=== PATIENT | female | born 1995 | race Caucasian/White ===

== ENCOUNTER 2016-07-28 13:27 | Emergency (ER) ==
[2016-07-28] MEDS ORDERED: ASPIRIN PO ONE (15:09)
--- NOTE | 2016-07-28 15:55 | Diag Imaging Result Document ---
PROCEDURE NAME: CHEST-2 VIEWS - 07/28/2016 CHEST, 2 VIEWS: COMPARISON: None. FINDINGS: The lungs are normally expanded and clear. Heart size and mediastinal contours are normal. No pneumothorax or pleural effusion. IMPRESSION: Negative exam.
--- NOTE | 2016-07-28 15:56 | ED EKG INTERP ---
EKG Interpretation - EKG Time of EKG reading by physician:: 15:37 EKG Read and Signed by:: Ronnie Mckoy EKG Interpretation (*Must complete 3 of following elements*): Normal Rate: 100 Rhythm: normal sinus rhythm Comments: Normal ECG
--- NOTE | 2016-07-28 15:57 | EKG Report ---
Test Performed on : 07/28/2016 3:37:28 PM Test Reason : CHEST PAIN Blood Pressure : / mmHG Vent. Rate : 100 BPM Atrial Rate : 100 BPM P-R Int : 128 ms QRS Dur : 074 ms QT Int : 366 ms P-R-T Axes : 054 055 026 degrees QTc Int : 472 ms Normal sinus rhythm. Normal ECG No previous ECGs available Unconfirmed Result
--- NOTE | 2016-07-28 18:08 | PROVIDER DOCUMENTATION ---
HPI-Chest Pain - General Source: patient - History of Present Illness-CP Location: reports: central Chest Pain Radiation: reports: no radiation Quality of Pain: reports: aching, pressure Severity in ED: mild Onset/Duration: other (3 weeks ago) Timing: still present, intermittent Context/Activities at Onset: reports: none Modifying Factors: improves with: breathing (deep breaths worse) Associated Symptoms: reports: denies symptoms Nitro Today/Relief: no nitro taken today Aspirin Treatment Today: 325 mg x 1, provided by ED Prior Chest Pain/Cardiac Workup: reports: no prior chest pain, no prior cardiac workup Similar Symptoms Previously?: Yes Recently Seen Here or By Another Healthcare Provider: No <Tiffanie Avila - Last Filed: 07/29/16 20:06> <Purvi Martinez - Last Filed: 07/31/16 17:23> - General Chief Complaint: Chest Pain Stated Complaint: CHEST PAIN Time Seen by Provider: 07/28/16 17:50 Allergies/Adverse Reactions: Patient Allergies Allergy/AdvReac Type Severity Reaction Status Date / Time Penicillins Allergy ANAPHYLAXIS Verified 07/28/16 14:04 Home Medications: Home Medication List Medication Instructions Recorded Confirmed Last Taken Type No Home Medications 07/28/16 07/28/16 Unknown History - History of Present Illness-CP Nature of Presenting Problem: 20 year old female presents to ER with c/o chest pain that started 1 week after having her baby but it has been worsening and today it is worse. She states that once the pain starts she begins to have palpitations. Deep breaths worsens the pain. (Tiffanie Avila) Review of Systems - Adult - REVIEW OF SYSTEMS - ADULT Constitutional: reports: no symptoms reported Eyes: reports: no symptoms reported Ears, Nose, Mouth & Throat: reports: no symptoms reported Cardiovascular: reports: chest pain, palpitations Respiratory: reports: see HPI, shortness of breath Gastrointestinal: reports: no symptoms reported Genitourinary: reports: no symptoms reported Musculoskeletal: reports: no symptoms reported Integumentary: reports: no symptoms reported Neurological: reports: no symptoms reported Psychiatric: reports: no symptoms reported Endocrine: reports: no symptoms reported Hematologic/Lymphatic: reports: no symptoms reported Allergic/Immunologic: reports: no symptoms reported All Other Systems: Reviewed and Negative <Tiffanie Avila - Last Filed: 07/29/16 20:06> Past History - Adult - PAST MEDICAL HISTORY-ADULT Review of Records: reports: Old Records Reviewed, Nursing Assessment Review, Medications Reviewed, Social history reviewed & non-contributory. Major Childhood Illnesses: reports: denies history Cardiovascular: reports: denies history Respiratory: reports: denies history Gastrointestinal: reports: denies history Obstetrical/Gynecological: reports: denies history Genitourinary: reports: denies history Musculoskeletal: reports: denies history Neurological: reports: denies history Endocrine/Immune: reports: denies history Other Conditions: reports: denies history - PRIOR SURGERIES/PROCEDURES Surgical/Procedure History: reports: tonsillectomy - IMMUNIZATION STATUS Childhood Immunizations: See Nurse Assessment Flu Vaccine: See Nurse Assessment - FAMILY HISTORY Family History: reviewed, not pertinent - SOCIAL HISTORY Smoking: denies, non-smoker Substance Use: none/never, denies Alcohol Use Frequency: never Living Situation: family <AustinAugust. - Last Filed: 07/29/16 20:06> Physical Exam-General - PHYSICAL EXAM-ADULT Initial Vital Signs Reviewed: Yes - CONSTITUTIONAL General Appearance: appears well, alert, no apparent distress - EYES Eyes: PERRL/EOMI, pink conjunctivae - HEAD, EARS, NOSE, MOUTH & THROAT HENMT: normocephalic/atraumatic, moist mucous membranes - RESPIRATORY Respiratory: lungs clear, normal breath sounds, no respiratory distress - CARDIOVASCULAR Cardiovascular: normal peripheral pulses, tachycardia (105) - GASTROINTESTINAL (ABDOMEN) Abdominal Exam: tenderness (epigastric area) - MUSCULOSKELETAL Back Exam: normal inspection Extremity: normal inspection, no pedal edema Peripheral Pulses: radial (R): 2+, radial (L): 2+, dorsalis-pedis (R): 2+, dorsalis-pedis (L): 2+ - SKIN Integumentary: normal color, normal turgor, warm/dry - NEUROLOGIC Neurologic: grossly normal - PSYCHIATRIC Psych/Mental Status: normal mood/affect, normal thought content, normal thought process, oriented x 3 <AustinAugust. - Last Filed: 07/29/16 20:06> Progress - XRAY 1 XRAY Study: Chest Impression: Normal (nad) XRAY Interpretation: Interpreted by Dr. Deleon - CHANGE OF SHIFT REPORT (ED Provider) Report Given and Care Transferred to:: Robyn Martinez PA-C Time of Transfer: 19:48 Items Pending: CT/MRI Results Tentative Impression of Patient: stable <AvilaTiffanie Keiko - Last Filed: 07/29/16 20:06> - CT/MRI 1 CT Study: Angiogram Impression: See EMR Report (No PE or other definite acute path. -per Dr. Chappell) <Purvi Martinez - Last Filed: 07/31/16 17:23> - PLAN OF CARE/RESULTS Progress/Plan/Lab Results: Laboratory Tests 07/28/16 07/28/16 07/28/16 18:23 18:23 18:23 WBC 10.21 RBC 4.25 Hgb 11.6 L Hct 35.3 L MCV 83.1 MCH 27.3 MCHC 32.9 L RDW Std Deviation 13.3 Plt Count 294 MPV 8.6 Immature Gran % (Auto) 0.3 Neut % (Auto) 74.1 Lymph % (Auto) 18.2 L [place] % (Auto) 5.1 Eos % (Auto) 2.0 Baso % (Auto) 0.3 Immature Gran # (Auto) 0.03 Neut # (Auto) 7.57 H Lymph # (Auto) 1.86 [place] # (Auto) 0.52 Eos # (Auto) 0.20 Baso # (Auto) 0.03 PT INR APTT (Factor Assay) D-Dimer Sodium 137 Potassium 4.5 Chloride 101 Carbon Dioxide 22 L Anion Gap 14 BUN 7 L Creatinine 0.4 L Estimated GFR/1.73 m2 > 60 BUN/Creatinine Ratio 18 Glucose 79 Calculated Osmolality 271 Calcium 9.3 Magnesium 2.0 Total Bilirubin 0.30 AST 94 H ALT 61 H Alkaline Phosphatase 145 H Creatine Kinase 56 Troponin T < 0.010 Wub-N-Gyalrmgrosc Pept Total Protein 7.3 Albumin 4.4 Globulin 3.0 Albumin/Globulin Ratio 2.0 07/28/16 07/28/16 18:23 18:23 WBC RBC Hgb Hct MCV MCH MCHC RDW Std Deviation Plt Count MPV Immature Gran % (Auto) Neut % (Auto) Lymph % (Auto) [place] % (Auto) Eos % (Auto) Baso % (Auto) Immature Gran # (Auto) Neut # (Auto) Lymph # (Auto) [place] # (Auto) Eos # (Auto) Baso # (Auto) PT 12.8 INR 0.93 APTT (Factor Assay) 28.3 D-Dimer 0.95 H Sodium Potassium Chloride Carbon Dioxide Anion Gap BUN Creatinine Estimated GFR/1.73 m2 BUN/Creatinine Ratio Glucose Calculated Osmolality Calcium Magnesium Total Bilirubin AST ALT Alkaline Phosphatase Creatine Kinase Troponin T Zfb-A-Vifxgdazejq Pept 63 Total Protein Albumin Globulin Albumin/Globulin Ratio Orders Category Date Time Status Saline Loc NOW Care 07/28/16 18:00 Active ANGIOGRAM/PULMONARY ARTERIES [CT] Stat Exams 07/28/16 19:47 Ordered CHEST-2 VIEWS [RAD] Stat Exams 07/28/16 15:10 Completed CBC WITH ELECTRONIC DIFF [HEME] Stat Lab 07/28/16 18:23 Completed CK PROFILE [SP CHEM] Stat Lab 07/28/16 18:23 Completed COMPREHENSIVE METABOLIC PANEL [CHEM] Stat Lab 07/28/16 18:23 Completed D-DIMER PL [COAG] Stat Lab 07/28/16 18:23 Completed D-DIMER [CHEM] Stat Lab 07/28/16 18:00 Ordered MAGNESIUM [CHEM] Stat Lab 07/28/16 18:23 Completed PRO B-NATRIURETIC PEPTIDE Stat Lab 07/28/16 18:[address]IME WITH INR PL [COAG] Stat Lab 07/28/16 18:[address] [COAG] Stat Lab 07/28/16 18:23 Completed TROPONIN T Stat Lab 07/28/16 18:23 Completed 0.9% Sodium Chloride Inj [Ns] 1,000 ml Med 07/28/16 19:33 Active IV 999 mls/hr Aspirin Med 07/28/16 15:09 Discontinued 325 mg PO NOW ONE EKG [EKG] Stat Ther 07/28/16 15:10 Draft EKG [EKG] Stat Ther 07/28/16 18:00 Draft Vital Signs - 24 hr 07/28/16 07/28/16 14:04 18:30 Temperature 98.2 F Pulse Rate 105 H 86 Respiratory 20 16 Rate Blood Pressure 128/76 119/82 O2 Sat by Pulse 100 99 Oximetry (Tiffanie Avila) Laboratory Tests 07/28/16 07/28/16 07/28/16 18:23 18:23 18:23 WBC 10.21 RBC 4.25 Hgb 11.6 L Hct 35.3 L MCV 83.1 MCH 27.3 MCHC 32.9 L RDW Std Deviation 13.3 Plt Count 294 MPV 8.6 Immature Gran % (Auto) 0.3 Neut % (Auto) 74.1 Lymph % (Auto) 18.2 L [place] % (Auto) 5.1 Eos % (Auto) 2.0 Baso % (Auto) 0.3 Immature Gran # (Auto) 0.03 Neut # (Auto) 7.57 H Lymph # (Auto) 1.86 [place] # (Auto) 0.52 Eos # (Auto) 0.20 Baso # (Auto) 0.03 PT INR APTT (Factor Assay) D-Dimer Sodium 137 Potassium 4.5 Chloride 101 Carbon Dioxide 22 L Anion Gap 14 BUN 7 L Creatinine 0.4 L Estimated GFR/1.73 m2 > 60 BUN/Creatinine Ratio 18 Glucose 79 Calculated Osmolality 271 Calcium 9.3 Magnesium 2.0 Total Bilirubin 0.30 AST 94 H ALT 61 H Alkaline Phosphatase 145 H Creatine Kinase 56 Troponin T < 0.010 Bqy-Y-Vtxwkmrxsoa Pept Total Protein 7.3 Albumin 4.4 Globulin 3.0 Albumin/Globulin Ratio 2.0 07/28/16 07/28/16 18:23 18:23 WBC RBC Hgb Hct MCV MCH MCHC RDW Std Deviation Plt Count MPV Immature Gran % (Auto) Neut % (Auto) Lymph % (Auto) [place] % (Auto) Eos % (Auto) Baso % (Auto) Immature Gran # (Auto) Neut # (Auto) Lymph # (Auto) [place] # (Auto) Eos # (Auto) Baso # (Auto) PT 12.8 INR 0.93 APTT (Factor Assay) 28.3 D-Dimer 0.95 H Sodium Potassium Chloride Carbon Dioxide Anion Gap BUN Creatinine Estimated GFR/1.73 m2 BUN/Creatinine Ratio Glucose Calculated Osmolality Calcium Magnesium Total Bilirubin AST ALT Alkaline Phosphatase Creatine Kinase Troponin T Xjz-P-Rgscjruxsjk Pept 63 Total Protein Albumin Globulin Albumin/Globulin Ratio Orders Category Date Time Status Saline Loc NOW Care 07/28/16 18:00 Active ANGIOGRAM/PULMONARY ARTERIES [CT] Stat Exams 07/28/16 19:47 Taken CHEST-2 VIEWS [RAD] Stat Exams 07/28/16 15:10 Completed CBC WITH ELECTRONIC DIFF [HEME] Stat Lab 07/28/16 18:23 Completed CK PROFILE [SP CHEM] Stat Lab 07/28/16 18:23 Completed COMPREHENSIVE METABOLIC PANEL [CHEM] Stat Lab 07/28/16 18:[address] D-D[address] [COAG] Stat Lab 07/28/16 18:23 Completed MAGNESIUM [CHEM] Stat Lab 07/28/16 18:23 Completed PRO B-NATRIURETIC PEPTIDE Stat Lab 07/28/16 18:[address]IME WITH INR PL [COAG] Stat Lab 07/28/16 18:[address] [COAG] Stat Lab 07/28/16 18:23 Completed TROPONIN T Stat Lab 07/28/16 18:23 Completed 0.9% Sodium Chloride Inj [Ns] 1,000 ml Med 07/28/16 19:33 Discontinued IV 999 mls/hr Acetaminophen with Codeine [Tylenol with Codeine #3] Med 07/28/16 21:34 Once 1 each PO NOW ONE Aspirin Med 07/28/16 15:09 Discontinued 325 mg PO NOW ONE EKG [EKG] Stat Ther 07/28/16 15:10 Draft EKG [EKG] Stat Ther 07/28/16 18:00 Draft Vital Signs Temp Pulse Resp BP Pulse Ox 07/28/16 20:33 98.9 F 90 16 113/70 100 07/28/16 18:30 86 16 119/82 99 07/28/16 14:04 98.2 F 105 H 20 128/76 100 Penicillins Allergy (Verified 07/28/16 14:04) ANAPHYLAXIS No Home Medications 07/28/16 Laboratory 07/28/16 07/28/16 07/28/16 18:23 18:23 18:23 WBC 10.21 RBC 4.25 Hgb 11.6 L Hct 35.3 L MCV 83.1 MCH 27.3 MCHC 32.9 L RDW Std Deviation 13.3 Plt Count 294 MPV 8.6 Immature Gran % (Auto) 0.3 Neut % (Auto) 74.1 Lymph % (Auto) 18.2 L [place] % (Auto) 5.1 Eos % (Auto) 2.0 Baso % (Auto) 0.3 Immature Gran # (Auto) 0.03 Neut # (Auto) 7.57 H Lymph # (Auto) 1.86 [place] # (Auto) 0.52 Eos # (Auto) 0.20 Baso # (Auto) 0.03 PT 12.8 INR 0.93 APTT (Factor Assay) 28.3 D-Dimer 0.95 H Sodium Potassium Chloride Carbon Dioxide Anion Gap BUN Creatinine Estimated GFR/1.73 m2 BUN/Creatinine Ratio Glucose Calculated Osmolality Calcium Magnesium Total Bilirubin AST ALT Alkaline Phosphatase Creatine Kinase Troponin T Ohh-W-Syfetazxtxq Pept 63 Total Protein Albumin Globulin Albumin/Globulin Ratio 07/28/16 07/28/16 18:23 18:23 WBC RBC Hgb Hct MCV MCH MCHC RDW Std Deviation Plt Count MPV Immature Gran % (Auto) Neut % (Auto) Lymph % (Auto) [place] % (Auto) Eos % (Auto) Baso % (Auto) Immature Gran # (Auto) Neut # (Auto) Lymph # (Auto) [place] # (Auto) Eos # (Auto) Baso # (Auto) PT INR APTT (Factor Assay) D-Dimer Sodium 137 Potassium 4.5 Chloride 101 Carbon Dioxide 22 L Anion Gap 14 BUN 7 L Creatinine 0.4 L Estimated GFR/1.73 m2 > 60 BUN/Creatinine Ratio 18 Glucose 79 Calculated Osmolality 271 Calcium 9.3 Magnesium 2.0 Total Bilirubin 0.30 AST 94 H ALT 61 H Alkaline Phosphatase 145 H Creatine Kinase 56 Troponin T < 0.010 Wke-K-Amgtonxiilf Pept Total Protein 7.3 Albumin 4.4 Globulin 3.0 Albumin/Globulin Ratio 2.[address] Travis; he agrees with d/c home after reviewing lab results. Discussed findings with pt. (Purvi Martinez) Departure - Departure Certified Medical Emergency: Emergent <Tiffanie Avila - Last Filed: 07/29/16 20:06> - Departure Time of Disposition Order: 21:33 Certified Medical Emergency: Emergent <Purvi Martinez - Last Filed: 07/31/16 17:23> - Departure DIAGNOSIS: Shortness of breath, Chest pain of uncertain etiology, Chest wall pain DIAGNOSIS: (Ruled Out): Pulmonary emboli Disposition: HOME 01 Condition: Stable Additional Instructions: Follow up with PCP/LITIGATION SECRETARY for further management. Take tylenol as needed for pain. ED Follow Up Instructions: You have been treated by a care provider in the Emergency Department. These instructions are being provided to you so you can have an understanding of how to care for yourself upon discharge. Upon discharge from the Emergency Department, you are responsible for making arrangements for follow-up care by a physician of your choice. Take all prescribed medications as directed. Return to the Emergency Department immediately for any new or worsening symptoms. You may call the Physician Referral phone number at [phone] to obtain a list of Physicians who are taking new patients. Referrals: None,PCP [Primary Care Provider] - Forms: Return to School/Parent Work Instructions: Shortness of Breath, Glac-kq-Ukzf, Chest Wall Pain, Dtjm-by-Vqdu Attestation - Physician/ JAMIE Attestation Patient care was provided by Advanced Practice Provider:: Yes Advanced Practice Provider:: Tiffanie Avila Advanced Practice Provider documentation review:: The Mid-level provider documentation, treatment plan and medical decision making was reviewed by the physician who agrees with all treatment and medical decision making by the MLP. <Tiffanie Avila - Last Filed: 07/29/16 20:06> Physician Attestation
--- NOTE | 2016-07-28 18:30 | EKG Report ---
Test Performed on : 07/28/2016 6:12:38 PM Test Reason : Chest Pain Blood Pressure : / mmHG Vent. Rate : 090 BPM Atrial Rate : 090 BPM P-R Int : 146 ms QRS Dur : 074 ms QT Int : 404 ms P-R-T Axes : 035 044 019 degrees QTc Int : 494 ms Normal sinus rhythm. Prolonged QT Abnormal ECG When compared with ECG of 28-JUL-2016 15:37, (Unconfirmed) No significant change was found Unconfirmed Result
[2016-07-28 18:37] LABS: MANUAL DIFF NEEDED? NO
[2016-07-28 18:43] LABS: BASO% 0.3 % (0.0-0.8); HEMATOCRIT 35.3 % (37.0-47.0); HEMOGLOBIN 11.6 g/dL (12.0-16.0); IMM GRAN# 0.03 X1000 (0.0-0.04); IMM GRAN% 0.3 % (0.0-0.5); LYMPH# 1.86 X1000 (1.2-3.4); LYMPH% 18.2 % (20.5-51.1); MCH 27.3 PG (27-31); MCHC 32.9 g/dL (33-37); MCV 83.1 FL (81-99); MONO# 0.52 X1000 (0.11-0.59); MONO% 5.1 % (1.7-9.3); MPV 8.6 FL (7.4-10.4); NEUT% 74.1 % (42.2-75.2); PLT 294 X1000 (130-400); RBC 4.25 XMIL (4.2-5.4)
[2016-07-28 19:04] LABS: AGAP 14; ALBUMIN 4.4 g/dL (3.5-5.0); ALKALINE PHOSPHATASE 145 U/L (32-104); BUN 7 mg/dL (8-22); CALCIUM 9.3 mg/dL (8.8-10.2); CHLORIDE 101 mmol/L (98-107); CK PROFILE 56 U/L (24-173); COSMO 271; GOT 94 U/L (10-30); GPT 61 U/L (10-36); POTASSIUM 4.5 mmol/L (3.5-5.1); SODIUM 137 mmol/L (136-145); TCO2 22 mmol/L (25-35); TOTAL PROTEIN 7.3 g/dL (6.3-8.3)
[2016-07-28 19:25] LABS: INR 0.93 (0.86-1.15); PROTIME 12.8 Seconds (12.1-15.5)
[2016-07-28 19:26] LABS: PTT PL 28.3 Seconds (22.6-43.9)
[2016-07-28] MEDS ORDERED: NS 1,000 ML IV ONE (19:33)
[2016-07-28] MEDS ORDERED: TYLENOL WITH CODEINE #3 PO ONE (21:34)
--- NOTE | 2016-07-28 21:35 | Diag Imaging Result Document ---
PROCEDURE NAME: ANGIOGRAM/PULMONARY ARTERIES - 07/28/2016 CTA CHEST: COMPARISON: None available. FINDINGS: There is no evidence of pulmonary embolism. There is no evidence of aortic dissection or aneurysm. There is no significant lymphadenopathy. The lungs are clear. There is no pleural fluid collection or pneumothorax. The limited views of the upper abdomen reveal a somewhat prominent spleen measuring up to 14.7 cm in length. The limited images of the upper abdomen are grossly unremarkable, otherwise. IMPRESSION: 1. No evidence of pulmonary embolism or other definite acute pathology. 2. Incidental prominent spleen.
[2016-07-28 22:13] VITALS: BP 124/77
[2016-07-28] MEDS ORDERED: TORADOL IV ONE (22:14)
== END 2016-07-28 22:48 | disposition home or self-care (01) ==
LOC: P.ED 13:27
DX: R07.89 Other chest pain (principal); R06.02 Shortness of breath; R00.0 Tachycardia, unspecified; R10.13 Epigastric pain
CPT/HCPCS: 71020; 71275; 80053; 82550; 83735; 83880; 84484; 85025; 85379; 85610; 85730; 93005; 96361; 96374; J1885; J7030; Q9967